=== PATIENT | female | born 2005 | race Two or more races ===

== ENCOUNTER 2025-07-03 22:15 | Emergency (ER) | payer MEDICAID, OTHER ==
[~2025-07-03] VITALS: Ht 149.9 cm; Wt 60.5 kg
[2025-07-03 22:20] VITALS: BP 111/66; PULSE 84; RESP 16; TEMP 99.1; O2SAT 97
--- NOTE | 2025-07-04 00:38 | ED.PDOC ---
History of Present Illness HPI Comments 19 y/o F presents with significant other for c/c abnormal vaginal bleeding with clot production and associated abdominal pain. Patient reports being 5x weeks and having 3x day history of symptoms. She was evaluated, yesterday, but left prior being told on results of possible miscarriage. Denies any further acute symptoms. 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 All Other Systems: Reviewed and Negative (as per HPI) Physical Exam General Appearance: No Apparent Distress, Normal HEENT: Normal ENT Inspection, Pharynx Normal, TMs Normal Neck: Full Range of Motion, Non-Tender, Normal, Normal Inspection Respiratory: Chest Non-Tender, Lungs Clear, No Accessory Muscle Use, No Respiratory Distress, Normal Breath Sounds Cardiovascular: No Edema, No JVD, No Murmur, No Gallop, Normal Peripheral Pulses, Regular Rate/Rhythm Breast Exam: Deferred Gastrointestinal: No Organomegaly, Non Tender, No Pulsatile Mass, Normal Bowel Sounds, Soft Genitalia: Deferred Pelvic: Deferred Rectal: Deferred Extremities: No calf tenderness, Normal capillary refill, Normal inspection, Normal range of motion, Non-tender, No pedal edema Musculoskeletal : Apperance: Normal Neurologic: Alert, manager of manufacturing II-XII nml as Tested, No Motor Deficits, Normal Affect, Normal Mood, No Sensory Deficits Cerebellar Function: Normal Reflexes: Normal Skin: Dry, Normal Color, Warm Lymphatic: No Adenopathy Was a procedure done? Was a procedure done?: No Differential Dx Considerations may include: miscarriage, threatened , vaginitis, UTI, among others X-Ray, Labs, Meds, VS Vital Signs Date Time Temp Pulse Resp B/P (MAP) Pulse Ox O2 Delivery O2 Flow Rate FiO2 07/03/25 22:20 99.1 84 16 111/66 97 99.1 Lab Test 07/04/25 01:50 07/04/25 00:12 Range/Units Urine Color Yellow Yellow Urine Clarity Clear Clear Urine pH 5.5 5.0-9.0 Urine Specific [place] 1.033 1.001-1.035 Urine Protein Trace H Negative Urine Ketones Negative Negative Urine Blood 2+ H Negative /uL Urine Nitrite Negative Negative Urine Bilirubin Negative Negative Urine Urobilinogen 2 H Negative mg/dL Urine Leukocyte Esterase 1+ Negative /uL Urine RBC 93 0 - 4 /hpf Urine Microscopic WBC 5 0-5 /HPF Urine Squamous Epithelial Cells Few <5 /hpf Urine Bacteria None seen None Seen /hpf Urine Mucus Few None Seen Urine Glucose Normal Normal mg/dL White Blood Count 7.7 4.4-10.8 10^3/uL Red Blood Count 4.65 4.0-5.20 10^6/uL Hemoglobin 13.7 12.2-16.2 g/dL Hematocrit 38.7 36.0-46.0 % Mean Corpuscular Volume 83.3 80.0-100.0 fL Mean Corpuscular Hemoglobin 29.6 28.0-32.0 pg Mean Corpuscular Hemoglobin Concent 35.5 32.0-36.0 g/dL Red Cell Distribution Width 12.6 11.8-14.3 % Platelet Count 313 140-450 10^3/uL Mean Platelet Volume 7.7 6.9-10.8 fL Neutrophils (%) (Auto) 67.6 37.0-80.0 % Lymphocytes (%) (Auto) 21.2 10.0-50.0 % Monocytes (%) (Auto) 9.8 0.0-12.0 % Eosinophils (%) (Auto) 1.1 0.0-7.0 % Basophils (%) (Auto) 0.3 0.0-2.0 % Neutrophils # (Auto) 5.2 1.6-8.6 10 ^3/uL Lymphocytes # (Auto) 1.6 0.4-5.4 10 ^3/uL Monocytes # (Auto) 0.8 0-1.3 10 ^3/uL Eosinophils # (Auto) 0.1 0-0.8 10 ^3/uL Basophils # (Auto) 0 0-0.2 10 ^3/uL Nucleated Red Blood Cells 0.1 % Sodium Level 138 136-145 mmol/L Potassium Level 3.7 3.5-5.1 mmol/L Chloride Level 105 98-107 mmol/L Carbon Dioxide Level 26 20-31 mmol/L Anion Gap 7 5-15 Blood Urea Nitrogen 6 L 9-23 mg/dL Creatinine 0.75 0.550-1.02 mg/dL Glomerular Filtration Rate Calc 116 >90 mL/min BUN/Creatinine Ratio 8.0 L 10.0-20.0 Serum Glucose 89 74-106 mg/dL Calcium Level 9.0 8.7-10.4 mg/dL Total Bilirubin 0.5 0.2-1.0 mg/dL Aspartate Amino Transferase (AST) 13 13-40 U/L Alanine Aminotransferase (ALT) 12 7-40 U/L Alkaline Phosphatase 75 46-116 U/L Total Protein 6.8 5.7-8.2 g/dL Albumin 4.4 3.2-4.8 g/dL Beta HCG, Quantitative 1348.6 H 1.5-4.2 mIU/mL Time of 1ST Reevaluation: 00:30 Reevaluation 1ST: Unchanged Patient Education/Counseling: Diagnosis, Treatment, Need For Follow Up Family Education/Counseling: No Family Present SEPSIS Sepsis Screen Date sepsis recognized/suspect: Jul 03, 2025 Time Sepsis recognized/suspect: 2219 Recent Procedure: No On Antibiotic Therapy: No Respiratory Rate >20: No Heart Rate >90: No Temp<36 C (96.8 F) or >38.3 C: No SBP <90 or MAP <65 mmHG: No New Acute Mental Status Change: No Is the patient on CPAP, BIPAP,: No Physician Orders Ob Ultrasound Comp Less 14wks (07/04/25 00:01) Ob Trans Vaginal Us (07/04/25 ) Vital Signs Date Time Temp Pulse Resp B/P (MAP) Pulse Ox O2 Delivery O2 Flow Rate FiO2 07/03/25 22:20 99.1 84 16 111/66 97 99.1 Laboratory Tests Test 07/04/25 00:12 White Blood Count 7.7 10^3/uL (4.4-10.8) Departure 1 Departure Time of Disposition: 02:00 Impression: Primary Impression: Bleeding in early Additional Impression: Vaginal bleeding affecting early Disposition: LEFT AWOL/ELOPED Condition: Stable Discharged With: Self Critical Care Note Critical Care Time?: No Stability Stability form required: No Heart Score Heart Score: Heart Score Response (Comments) Value History N/A 0 EKG N/A 0 Age N/A 0 Risk Factors N/A 0 Troponin N/A 0 Total 0 I personally scribed for KUN LING MD ([email or web address]) on 07/04/25 at 00:38. Electronically submitted by Hoang Pitts [email or web address]). KUN LING MD Jul 04, 2025 00:38
[2025-07-04 00:42] LABS: Hematocrit 38.7 % (36.0-46.0); Hemoglobin 13.7 g/dL (12.2-16.2); Mean Corpuscular Hemoglobin 29.6 pg (28.0-32.0); Mean Corpuscular Volume 83.3 fL (80.0-100.0); Nucleated Red Blood Cells % 0.1 %
[2025-07-04 00:49] LABS: Alanine Aminotransferase 12 U/L (7-40); Albumin 4.4 g/dL (3.2-4.8); Alkaline Phosphatase 75 U/L (46-116); Anion Gap 7 (5-15); BUN/Creatinine Ratio 8.0 (10.0-20.0); Calcium 9.0 mg/dL (8.7-10.4); Carbon Dioxide 26 mmol/L (20-31); Chloride 105 mmol/L (98-107); Glucose 89 mg/dL (74-106); Potassium 3.7 mmol/L (3.5-5.1); Sodium 138 mmol/L (136-145); Total Protein 6.8 g/dL (5.7-8.2)
[2025-07-04 00:50] LABS: Bilirubin, Total 0.5 mg/dL (0.2-1.0)
[2025-07-04 01:04] LABS: Blood Urea Nitrogen 6 mg/dL (9-23)
--- NOTE | 2025-07-04 02:05 | DVH ---
INDICATION: vag bleed, 5wks TECHNIQUE: Multiple real-time grayscale transabdominal sonographic images along with color and duplex Doppler of the uterus and ovaries were obtained. COMPARISON: US OB TRANS VAGINAL US on DOS: 07/04/25 FINDINGS: The uterus measures 7.3 x 4.9 x 4.7 cm. The endometrial stripe measures 0.3 cm. No identifi able intrauterine gestation. Right ovary not visualized. Left ovary measures 3.1 x 2.1 x 1.7 cm with normal Doppler color flow IMPRESSION: 1. No identifiable intrauterine gestation. Correlation with beta hCG and short-term follow-up ultras ound recommended. 2. Thickened endometrial echo complex. 3. Nonvisualized right ovary.
[2025-07-04 02:15] LABS: Urine Protein, UAD TRACE (Negative)
== END 2025-07-04 03:00 | disposition left against medical advice (07) ==
LOC: ER 22:22
DX: O20.0 Threatened abortion (principal); Z3A.01 Less than 8 weeks gestation of pregnancy
CPT/HCPCS: 36415; 76801; 76817; 80053; 81001; 84702; 85025; 86901

== ENCOUNTER 2025-08-30 20:20 | Emergency (ER) | payer MEDICAID | END 2025-08-30 20:21 | disposition left against medical advice (07) | LOC: ER 20:20 | DX: R10.20 Pelvic and perineal pain unspecified side (principal); Z53.21 Procedure and treatment not carried out due to patient leaving prior to being seen by health care provider ==